=== PATIENT | male | born 1955 | race African-American/Black ===

== ENCOUNTER 2019-07-16 22:40 | Inpatient (IN) | payer OTHER ==
[~2019-07-16] VITALS: Ht 182.9 cm; Wt 54.0 kg
[2019-07-16] MEDS ORDERED: LORAZEPAM 2MG/ML CPJ IV ONE (23:00)
[2019-07-16 23:40] LABS: CHLORIDE 97 mEq/L (98-107)
[2019-07-16 23:46] LABS: BASOPHILS % 1.3 % (0.0-2.0); EOSINOPHILS % 2.3 % (0.0-5.0); HEMATOCRIT. 28.1 % (42.0-52.0); HEMOGLOBIN. 8.9 g/dL (14.0-18.0); LYMPHOCYTES % 35.1 % (20.0-50.0); MEAN CORPUSCULAR HEMOGLOBIN 28.2 pg (28.0-32.0); MEAN CORPUSCULAR VOLUME 89.5 fL (80.0-94.0); MONOCYTES % 4.6 % (2.0-8.0); NEUTROPHILS % 56.7 % (40.0-76.0); PLATELET 368 x1000/uL (130-400); RED BLOOD CELL COUNT 3.14 mill/uL (4.7-6.1); RED CELL DISTRIBUTION WIDTH 19.9 % (11.6-14.6)
[2019-07-16 23:51] LABS: CREATINE KINASE 176 IU/L (39-308)
[2019-07-16 23:52] LABS: D-DIMER 2.42 mg/L FEU (<0.50); PARTIAL THROMBOPLASTIN TIME 27.5 sec (23.4-31.0); PROTHROMBIN TIME 10.7 sec (9.6-11.0)
[2019-07-17] VITALS (36 sets, daily range): BP systolic 52–222; BP diastolic 35–133
[2019-07-17] MEDS ORDERED: ALBUTEROL (0.083%) 2.5MG/3ML NEB HHN ONE (00:30)
[2019-07-17] MEDS ORDERED: LORAZEPAM 2MG/ML CPJ IV ONE (00:30)
[2019-07-17] MEDS ORDERED: CALCIUM CHLORIDE 1GM/10ML SYR IV ONE ×2 (00:30→09:30)
[2019-07-17] MEDS ORDERED: DEXTROSE 50% WATER 50ML SYRINGE IV ONE ×2 (00:30→09:30)
[2019-07-17] MEDS ORDERED: SODIUM BICARBONATE 8.4% 1 MEQ/ML 50ML SYR IV ONE ×2 (00:30→09:30)
[2019-07-17] MEDS ORDERED: INSULIN REGULAR (HUMULIN R) 300UNITS/3ML IV ONE ×2 (00:30→09:30)
[2019-07-17] MEDS ORDERED: HYDRALAZINE 20MG/ML VIAL IV ONE ×2 (01:30→16:30)
[2019-07-17] MEDS ORDERED: PIPERACILLIN/TAZOBACTAM 3.375GM/50ML PREMIX IV ONE (01:30)
[2019-07-17] MEDS ORDERED: VANCOMYCIN 1 G PREMIX 200 ML IV ONE (01:30)
[2019-07-17] MEDS ORDERED: LABETALOL HCL 20MG/4ML CARPUJECT IV ONE (04:45)
[2019-07-17] MEDS ORDERED: CEFTRIAXONE 1 G PREMIX 50 ML IV SCH (06:30)
[2019-07-17] MEDS ORDERED: ENOXAPARIN 40MG/0.4ML SYR SUBCUT SCH (06:30)
[2019-07-17] MEDS ORDERED: AZITHROMYCIN 500 MG in DEXT 5% WATER 250 ML IV SCH ×2 (06:30→14:45)
[2019-07-17] MEDS ORDERED: AZITHROMYCIN 500 MG in DEXT 5% WATER 250 ML IV ONE (07:00)
[2019-07-17] MEDS ORDERED: CEFTRIAXONE 1 G PREMIX 50 ML IV ONE (07:00)
[2019-07-17] MEDS: DEXT 5%/0.45% NACL 1000ML 1,000 ML IV SCH (07:21)
[2019-07-17 09:22] LABS: BG BILEVEL POS AIRWAY PRESSURE ST=15/5; BG CARBOXYHEMOGLOBIN 0.1 % (0.5-1.5); BG DEOXYHEMOGLOBIN 4.6 % (0.0-5.0); BG FRACTION INSPIRED OXYGEN 100; BG HCO3 ACT 23.1 mmol/L (22.0-26.0); BG METHEMOGLOBIN 0.2 % (0.0-1.5); BG OXYGEN SATURATION 95.4 % (92.0-98.5); BG OXYHEMOGLOBIN 95.1 % (94.0-97.0); BG PCO2 46.2 mmHg (35.0-45.0); BG PH 7.316 (7.350-7.450); BG PO2 91.2 mmHg (75.0-100.0); BG SAMPLE SITE RIGHT RADIAL; BG TOTAL HEMOGLOBIN 8.8 g/dL (12.0-18.0); BG VENT MODE MASK - BIPAP
[2019-07-17] MEDS ORDERED: PROPOFOL 10MG/ML 100ML 100 ML IV ONE (09:30)
[2019-07-17] MEDS ORDERED: VECURONIUM BROMIDE 10 MG/VIAL IV ONE (09:30)
[2019-07-17 09:36] LABS: BASOPHILS % 1.2 % (0.0-2.0); EOSINOPHILS % 0.1 % (0.0-5.0); HEMATOCRIT. 26.8 % (42.0-52.0); HEMOGLOBIN. 8.5 g/dL (14.0-18.0); LYMPHOCYTES % 10.2 % (20.0-50.0); MEAN CORPUSCULAR HEMOGLOBIN 28.3 pg (28.0-32.0); MEAN CORPUSCULAR VOLUME 88.8 fL (80.0-94.0); MEAN PLATELET VOLUME 9.4 fl (7.4-10.4); MONOCYTES % 5.9 % (2.0-8.0); NEUTROPHILS % 82.6 % (40.0-76.0); PLATELET 288 x1000/uL (130-400); RED BLOOD CELL COUNT 3.02 mill/uL (4.7-6.1); RED CELL DISTRIBUTION WIDTH 19.5 % (11.6-14.6)
[2019-07-17 09:45] LABS: CHLORIDE 97 mEq/L (98-107)
[2019-07-17 10:13] LABS: BG CARBOXYHEMOGLOBIN 0.1 % (0.5-1.5); BG DEOXYHEMOGLOBIN 8.7 % (0.0-5.0); BG FRACTION INSPIRED OXYGEN 100; BG HCO3 ACT 24.3 mmol/L (22.0-26.0); BG METHEMOGLOBIN 0.2 % (0.0-1.5); BG OXYGEN SATURATION 91.3 % (92.0-98.5); BG PCO2 58.1 mmHg (35.0-45.0); BG PH 7.239 (7.350-7.450); BG SAMPLE SITE RIGHT RADIAL; BG TIDAL VOLUME(mL) 500 mL; BG TOTAL HEMOGLOBIN 6.6 g/dL (12.0-18.0); BG VENT MODE VENT - A/C; BG VENT RATE 20 set
[2019-07-17] MEDS ORDERED: CEFEPIME 1,000 MG in DEXTROSE 5% WATER 50 ML IV SCH (14:45)
[2019-07-17] MEDS: AMLODIPINE 10MG TABLET PO SCH (15:15)
[2019-07-17] MEDS: PANTOPRAZOLE SODIUM 40 MG/VIAL IV SCH (16:54)
[2019-07-17] MEDS: PROPOFOL 10MG/ML 100ML 100 ML IV PRN (16:56)
[2019-07-17] MEDS: CEFEPIME 1,000 MG in DEXTROSE 5% WATER 50 ML IV SCH (18:55)
[2019-07-17] MEDS: ENOXAPARIN 30MG/0.3ML SYR SUBCUT SCH (22:06)
[2019-07-18] VITALS (94 sets, daily range): BP systolic 130–201; BP diastolic 83–133
[2019-07-18] MEDS: PROPOFOL 10MG/ML 100ML 100 ML IV PRN ×5 (01:13→20:43)
[2019-07-18 06:33] LABS: CHLORIDE 103 mEq/L (98-107)
[2019-07-18 06:55] LABS: HEMATOCRIT. 23.3 % (42.0-52.0); HEMOGLOBIN. 7.8 g/dL (14.0-18.0); MEAN CORPUSCULAR HEMOGLOBIN 29.1 pg (28.0-32.0); MEAN CORPUSCULAR VOLUME 86.9 fL (80.0-94.0); PLATELET 218 x1000/uL (130-400); RED BLOOD CELL COUNT 2.68 mill/uL (4.7-6.1); RED CELL DISTRIBUTION WIDTH 19.1 % (11.6-14.6)
[2019-07-18] MEDS: DEXT 5%/0.45% NACL 1000ML 1,000 ML IV SCH (07:40)
[2019-07-18 08:31] LABS: BG BASE EXCESS 2.7 mmol/L (-2.0-2.0); BG CARBOXYHEMOGLOBIN 0.3 % (0.5-1.5); BG DEOXYHEMOGLOBIN 0.8 % (0.0-5.0); BG HCO3 ACT 27.4 mmol/L (22.0-26.0); BG METHEMOGLOBIN 0.3 % (0.0-1.5); BG OXYGEN SATURATION 99.2 % (92.0-98.5); BG OXYHEMOGLOBIN 98.6 % (94.0-97.0); BG PCO2 42.9 mmHg (35.0-45.0); BG PH 7.423 (7.350-7.450); BG PO2 169.1 mmHg (75.0-100.0); BG SAMPLE SITE RIGHT RADIAL; BG TIDAL VOLUME(mL) 500 mL; BG TOTAL HEMOGLOBIN 9.1 g/dL (12.0-18.0); BG VENT MODE VENT - A/C; BG VENT RATE 20 set
[2019-07-18] MEDS: CLONIDINE 0.1MG TABLET PO PRN (08:46)
[2019-07-18] MEDS: AZITHROMYCIN 500 MG in DEXT 5% WATER 250 ML IV SCH (08:46)
[2019-07-18] MEDS: PANTOPRAZOLE SODIUM 40 MG/VIAL IV SCH (08:46)
[2019-07-18] MEDS: AMLODIPINE 10MG TABLET PO SCH (08:47)
[2019-07-18 10:12] LABS: PLATELET ESTIMATE NORMAL
[2019-07-18] MEDS ORDERED: IPRATROPIUM/ALBUTEROL 0.5-3(2.5)MG/3ML NEB HHN PRN (12:30)
[2019-07-18] MEDS: HYDRALAZINE 20MG/ML VIAL IV PRN ×2 (13:47→23:16)
[2019-07-18] MEDS: CEFEPIME 1,000 MG in DEXTROSE 5% WATER 50 ML IV SCH (17:52)
[2019-07-18] MEDS: ENOXAPARIN 30MG/0.3ML SYR SUBCUT SCH (20:40)
[2019-07-18] MEDS: IPRATROPIUM/ALBUTEROL 0.5-3(2.5)MG/3ML NEB HHN SCH (20:56)
[2019-07-18] MEDS ORDERED: DEXT 5%/0.45% NACL 1000ML 1,000 ML IV SCH (22:00)
[2019-07-19] VITALS (38 sets, daily range): BP systolic 100–171; BP diastolic 61–109
[2019-07-19] MEDS: PROPOFOL 10MG/ML 100ML 100 ML IV PRN ×4 (01:31→20:29)
[2019-07-19] MEDS: IPRATROPIUM/ALBUTEROL 0.5-3(2.5)MG/3ML NEB HHN SCH ×4 (02:13→20:46)
[2019-07-19 06:54] LABS: HEPATITIS B SURFACE ANTIGEN NEGATIVE
[2019-07-19] MEDS: HYDRALAZINE 20MG/ML VIAL IV PRN (07:00)
[2019-07-19] MEDS: PANTOPRAZOLE SODIUM 40 MG/VIAL IV SCH (08:11)
[2019-07-19] MEDS: AMLODIPINE 10MG TABLET PO SCH (08:11)
[2019-07-19 09:11] LABS: BASOPHILS % 1.6 % (0.0-2.0); EOSINOPHILS % 0.8 % (0.0-5.0); HEMATOCRIT. 21.1 % (42.0-52.0); LYMPHOCYTES % 11.9 % (20.0-50.0); MEAN CORPUSCULAR VOLUME 87.2 fL (80.0-94.0); MEAN PLATELET VOLUME 8.9 fl (7.4-10.4); MONOCYTES % 10.9 % (2.0-8.0); NEUTROPHILS % 74.8 % (40.0-76.0); PLATELET 192 x1000/uL (130-400); RED BLOOD CELL COUNT 2.42 mill/uL (4.7-6.1); RED CELL DISTRIBUTION WIDTH 19.6 % (11.6-14.6)
[2019-07-19 10:01] LABS: BG BASE EXCESS 1.1 mmol/L (-2.0-2.0); BG CARBOXYHEMOGLOBIN 0.3 % (0.5-1.5); BG DEOXYHEMOGLOBIN 0.8 % (0.0-5.0); BG FRACTION INSPIRED OXYGEN 60; BG METHEMOGLOBIN 0.1 % (0.0-1.5); BG OXYGEN SATURATION 99.2 % (92.0-98.5); BG OXYHEMOGLOBIN 98.8 % (94.0-97.0); BG PCO2 36.3 mmHg (35.0-45.0); BG PH 7.456 (7.350-7.450); BG PO2 174.3 mmHg (75.0-100.0); BG SAMPLE SITE RIGHT RADIAL; BG TIDAL VOLUME(mL) 500 mL; BG TOTAL HEMOGLOBIN 6.6 g/dL (12.0-18.0); BG VENT MODE VENT - A/C; BG VENT RATE 16 set
[2019-07-19] MEDS ORDERED: FENTANYL CITRATE/PF 500 MCG in SODIUM CHLORIDE 0.9% 40 ML IV PRN (11:30)
[2019-07-19] MEDS: AZITHROMYCIN 500 MG in DEXT 5% WATER 250 ML IV SCH (14:36)
[2019-07-19] MEDS: CEFEPIME 1,000 MG in DEXTROSE 5% WATER 50 ML IV SCH (17:36)
[2019-07-19] MEDS: ENOXAPARIN 30MG/0.3ML SYR SUBCUT SCH (20:05)
[2019-07-20] VITALS (76 sets, daily range): BP systolic 102–162; BP diastolic 65–107
[2019-07-20] MEDS: IPRATROPIUM/ALBUTEROL 0.5-3(2.5)MG/3ML NEB HHN SCH ×4 (02:40→20:48)
[2019-07-20] MEDS: PROPOFOL 10MG/ML 100ML 100 ML IV PRN ×4 (02:53→19:23)
[2019-07-20 06:53] LABS: BASOPHILS % 1.5 % (0.0-2.0); EOSINOPHILS % 2.9 % (0.0-5.0); LYMPHOCYTES % 13.2 % (20.0-50.0); MEAN CORPUSCULAR HEMOGLOBIN 28.6 pg (28.0-32.0); MEAN CORPUSCULAR VOLUME 87.8 fL (80.0-94.0); MEAN PLATELET VOLUME 9.5 fl (7.4-10.4); MONOCYTES % 7.8 % (2.0-8.0); NEUTROPHILS % 74.6 % (40.0-76.0); PLATELET 181 x1000/uL (130-400); RED BLOOD CELL COUNT 1.84 mill/uL (4.7-6.1); RED CELL DISTRIBUTION WIDTH 19.3 % (11.6-14.6)
[2019-07-20 07:00] LABS: HEMATOCRIT. 16.2 % (42.0-52.0); HEMOGLOBIN. 5.3 g/dL (14.0-18.0)
[2019-07-20] MEDS: PANTOPRAZOLE SODIUM 40 MG/VIAL IV SCH (08:16)
[2019-07-20] MEDS: AZITHROMYCIN 500 MG in DEXT 5% WATER 250 ML IV SCH (08:17)
[2019-07-20] MEDS: AMLODIPINE 10MG TABLET PO SCH (08:17)
[2019-07-20] MEDS: CLONIDINE 0.1MG TABLET PO PRN (08:55)
[2019-07-20 09:47] LABS: BG BASE EXCESS 6.1 mmol/L (-2.0-2.0); BG CARBOXYHEMOGLOBIN 0.5 % (0.5-1.5); BG DEOXYHEMOGLOBIN 1.4 % (0.0-5.0); BG FRACTION INSPIRED OXYGEN 40; BG HCO3 ACT 30.9 mmol/L (22.0-26.0); BG METHEMOGLOBIN 0.3 % (0.0-1.5); BG OXYGEN SATURATION 98.6 % (92.0-98.5); BG OXYHEMOGLOBIN 97.8 % (94.0-97.0); BG PCO2 47.1 mmHg (35.0-45.0); BG PH 7.435 (7.350-7.450); BG PO2 128.1 mmHg (75.0-100.0); BG SAMPLE SITE RIGHT RADIAL; BG TIDAL VOLUME(mL) 500 mL; BG TOTAL HEMOGLOBIN 6.5 g/dL (12.0-18.0); BG VENT MODE VENT - A/C; BG VENT RATE 16 set
[2019-07-20] MEDS: FENTANYL CITRATE/PF 1,000 MCG in SODIUM CHLORIDE 0.9% 80 ML IV PRN ×2 (13:29→22:18)
[2019-07-20] MEDS: CEFEPIME 1,000 MG in DEXTROSE 5% WATER 50 ML IV SCH (17:28)
[2019-07-21] VITALS (85 sets, daily range): BP systolic 142–219; BP diastolic 76–157
[2019-07-21] MEDS: PROPOFOL 10MG/ML 100ML 100 ML IV PRN ×2 (01:02→05:39)
[2019-07-21] MEDS: IPRATROPIUM/ALBUTEROL 0.5-3(2.5)MG/3ML NEB HHN SCH ×4 (02:11→20:25)
[2019-07-21] MEDS: HYDRALAZINE 20MG/ML VIAL IV PRN ×3 (05:37→19:52)
[2019-07-21] MEDS: CLONIDINE 0.1MG TABLET PO PRN ×3 (07:50→22:22)
[2019-07-21] MEDS ORDERED: AZITHROMYCIN 500 MG TABLET PO SCH (09:00)
[2019-07-21] MEDS: PANTOPRAZOLE SODIUM 40 MG/VIAL IV SCH (09:22)
[2019-07-21] MEDS: AMLODIPINE 10MG TABLET PO SCH (09:23)
[2019-07-21] MEDS: FENTANYL CITRATE/PF 1,000 MCG in SODIUM CHLORIDE 0.9% 80 ML IV PRN (09:59)
[2019-07-21 10:59] LABS: HEMATOCRIT. 29.6 % (42.0-52.0); MEAN CORPUSCULAR HEMOGLOBIN 29.2 pg (28.0-32.0); MEAN PLATELET VOLUME 9.2 fl (7.4-10.4); RED CELL DISTRIBUTION WIDTH 17.2 % (11.6-14.6)
[2019-07-21 12:45] LABS: PLATELET ESTIMATE NORMAL
[2019-07-21 12:46] LABS: PLATELET 239 x1000/uL (130-400)
[2019-07-21 13:00] LABS: BG BASE EXCESS 0.3 mmol/L (-2.0-2.0); BG CARBOXYHEMOGLOBIN 0.3 % (0.5-1.5); BG CPAP (cmH2O) 0 cm(H2O); BG DEOXYHEMOGLOBIN 4.2 % (0.0-5.0); BG HCO3 ACT 25.6 mmol/L (22.0-26.0); BG METHEMOGLOBIN 0.1 % (0.0-1.5); BG OXYGEN SATURATION 95.8 % (92.0-98.5); BG OXYHEMOGLOBIN 95.4 % (94.0-97.0); BG PCO2 44.4 mmHg (35.0-45.0); BG PH 7.379 (7.350-7.450); BG PO2 82.8 mmHg (75.0-100.0); BG SAMPLE SITE RIGHT RADIAL; BG TOTAL HEMOGLOBIN 10.2 g/dL (12.0-18.0); BG VENT MODE VENT - CPAP
[2019-07-21] MEDS: CEFEPIME 1,000 MG in DEXTROSE 5% WATER 50 ML IV SCH (18:26)
[2019-07-22] VITALS (12 sets, daily range): BP systolic 166–242; BP diastolic 96–137
[2019-07-22] MEDS: ACETAMINOPHEN 650MG SUPP PR PRN ×2 (00:08→06:20)
[2019-07-22] MEDS: HYDRALAZINE 20MG/ML VIAL IV PRN ×5 (01:23→22:14)
[2019-07-22] MEDS: IPRATROPIUM/ALBUTEROL 0.5-3(2.5)MG/3ML NEB HHN SCH ×4 (02:28→21:30)
[2019-07-22] MEDS: ONDANSETRON HCL 4MG/2ML INJ IV PRN (03:59)
[2019-07-22] MEDS: CLONIDINE 0.1MG TABLET PO PRN (03:59)
[2019-07-22] MEDS: PANTOPRAZOLE SODIUM 40 MG/VIAL IV SCH (08:04)
[2019-07-22] MEDS: AMLODIPINE 10MG TABLET PO SCH (08:04)
[2019-07-22] MEDS ORDERED: ENALAPRIL 1.25MG/ML VIAL 1ML IV NR (10:30)
[2019-07-22] MEDS ORDERED: LABETALOL 5MG/ML SYR 20 MG/4 ML SYRINGE IV NR (12:00)
[2019-07-22] MEDS: HYDRALAZINE HCL 50MG TABLET PO SCH ×2 (14:49→20:55)
[2019-07-22] MEDS: METOPROLOL TARTRATE 25MG TABLET PO SCH (20:55)
[2019-07-23] VITALS (10 sets, daily range): BP systolic 140–194; BP diastolic 90–112
[2019-07-23] MEDS: CLONIDINE 0.1MG TABLET PO PRN ×2 (00:57→06:44)
[2019-07-23] MEDS: ONDANSETRON HCL 4MG/2ML INJ IV PRN ×2 (00:59→20:46)
[2019-07-23] MEDS: IPRATROPIUM/ALBUTEROL 0.5-3(2.5)MG/3ML NEB HHN SCH ×4 (02:55→21:59)
[2019-07-23] MEDS: HYDRALAZINE 20MG/ML VIAL IV PRN ×2 (03:20→09:54)
[2019-07-23] MEDS: HYDRALAZINE HCL 50MG TABLET PO SCH (05:09)
[2019-07-23] MEDS: PANTOPRAZOLE SODIUM 40 MG/VIAL IV SCH (09:55)
[2019-07-23] MEDS: AMLODIPINE 10MG TABLET PO SCH (09:55)
[2019-07-23] MEDS: METOPROLOL TARTRATE 25MG TABLET PO SCH ×2 (09:55→20:46)
[2019-07-23] MEDS: MINOXIDIL 2.5MG TABLET PO SCH (12:43)
[2019-07-23] MEDS ORDERED: CLONIDINE HCL 0.1MG/24HR PATCH TD SCH (13:00)
[2019-07-23] MEDS: DOXAZOSIN MESYLATE 4MG TABLET PO SCH (14:32)
[2019-07-23] MEDS: HYDRALAZINE HCL 100MG TABLET PO SCH ×2 (14:32→20:47)
[2019-07-23] MEDS ORDERED: ZOLPIDEM TARTRATE 5MG TABLET PO PRN (20:30)
[2019-07-24] VITALS (9 sets, daily range): BP systolic 115–162; BP diastolic 60–104
[2019-07-24] MEDS: IPRATROPIUM/ALBUTEROL 0.5-3(2.5)MG/3ML NEB HHN SCH (02:24)
[2019-07-24] MEDS: HYDRALAZINE 20MG/ML VIAL IV PRN (03:36)
[2019-07-24] MEDS: CLONIDINE 0.1MG TABLET PO PRN (05:40)
[2019-07-24 05:51] LABS: BASOPHILS % 1.3 % (0.0-2.0); EOSINOPHILS % 5.7 % (0.0-5.0); HEMATOCRIT. 26.4 % (42.0-52.0); HEMOGLOBIN. 8.9 g/dL (14.0-18.0); LYMPHOCYTES % 13.3 % (20.0-50.0); MEAN CORPUSCULAR HEMOGLOBIN 29.1 pg (28.0-32.0); MEAN CORPUSCULAR VOLUME 86.4 fL (80.0-94.0); MEAN PLATELET VOLUME 8.7 fl (7.4-10.4); MONOCYTES % 9.1 % (2.0-8.0); NEUTROPHILS % 70.6 % (40.0-76.0); PLATELET 229 x1000/uL (130-400); RED BLOOD CELL COUNT 3.05 mill/uL (4.7-6.1); RED CELL DISTRIBUTION WIDTH 17.5 % (11.6-14.6)
[2019-07-24] MEDS: HYDRALAZINE HCL 100MG TABLET PO SCH ×2 (07:34→14:00)
[2019-07-24] MEDS: MINOXIDIL 2.5MG TABLET PO SCH (09:27)
[2019-07-24] MEDS: AMLODIPINE 10MG TABLET PO SCH (09:28)
[2019-07-24] MEDS: METOPROLOL TARTRATE 25MG TABLET PO SCH (09:28)
[2019-07-24] MEDS: PANTOPRAZOLE SODIUM 40 MG/VIAL IV SCH (09:29)
[2019-07-24] MEDS: DOXAZOSIN MESYLATE 4MG TABLET PO SCH (09:29)
[2019-07-24] MEDS ORDERED: HEPARIN SODIUM 1,000 UNIT/1ML VIAL IV NR (14:45)
== END 2019-07-24 16:10 | disposition home or self-care (01) | DRG 130 ==
LOC: ER 22:40 → MICUSO 07-17 00:56 → EDBD 07-17 00:56 → ENRESERV 07-17 15:08 → 5EST 07-18 22:45 → 3WST 07-24 11:24
PROVIDERS: ADMIT Hospitalist; ATTEND Hospitalist
PROC: 5A1955Z Respiratory Ventilation, Greater than 96 Consecutive Hours (ICD-10-PCS; principal; 2019-07-17)
PROC: 5A12012 Performance of Cardiac Output, Single, Manual (ICD-10-PCS; 2019-07-17)
PROC: 0BH17EZ Insertion of Endotracheal Airway into Trachea, Via Natural or Artificial Opening (ICD-10-PCS; 2019-07-17)
PROC: 5A1D70Z Performance of Urinary Filtration, Intermittent, Less than 6 Hours Per Day (ICD-10-PCS; 2019-07-17)
PROC: 5A09357 Assistance with Respiratory Ventilation, Less than 24 Consecutive Hours, Continuous Positive Airway Pressure (ICD-10-PCS; 2019-07-17)
PROC: 5A1D70Z Performance of Urinary Filtration, Intermittent, Less than 6 Hours Per Day (ICD-10-PCS; 2019-07-18)
PROC: 02HV33Z Insertion of Infusion Device into Superior Vena Cava, Percutaneous Approach (ICD-10-PCS; 2019-07-19)
PROC: B548ZZA Ultrasonography of Superior Vena Cava, Guidance (ICD-10-PCS; 2019-07-19)
PROC: B5181ZA Fluoroscopy of Superior Vena Cava using Low Osmolar Contrast, Guidance (ICD-10-PCS; 2019-07-19)
PROC: 30233N1 Transfusion of Nonautologous Red Blood Cells into Peripheral Vein, Percutaneous Approach (ICD-10-PCS; 2019-07-20)
PROC: 5A1D70Z Performance of Urinary Filtration, Intermittent, Less than 6 Hours Per Day (ICD-10-PCS; 2019-07-20)
PROC: 5A1D70Z Performance of Urinary Filtration, Intermittent, Less than 6 Hours Per Day (ICD-10-PCS; 2019-07-22)
PROC: 5A1D70Z Performance of Urinary Filtration, Intermittent, Less than 6 Hours Per Day (ICD-10-PCS; 2019-07-24)
DX: J96.01 Acute respiratory failure with hypoxia (principal); I46.9 Cardiac arrest, cause unspecified; E43 Unspecified severe protein-calorie malnutrition; G92 Toxic encephalopathy; I13.2 Hypertensive heart and chronic kidney disease with heart failure and with stage 5 chronic kidney disease, or end stage renal disease; E87.5 Hyperkalemia; N18.6 End stage renal disease; Z99.2 Dependence on renal dialysis; E87.1 Hypo-osmolality and hyponatremia; D64.9 Anemia, unspecified; Z20.828 Contact with and (suspected) exposure to other viral communicable diseases; F14.10 Cocaine abuse, uncomplicated; I50.9 Heart failure, unspecified; E87.2 Acidosis; B19.20 Unspecified viral hepatitis C without hepatic coma; Z91.14 Patient's other noncompliance with medication regimen; Z68.1 Body mass index [BMI] 19.9 or less, adult; Z79.899 Other long term (current) drug therapy
CPT/HCPCS: 36415; 36600; 71045; 76937; 80048; 80053; 82375; 82550; 82728; 82805; 82962; 83605; 83615; 83880; 84132; 84145; 84478; 84484; 85025; 85379; 86140; 86803; 86850; 86900; 86920; 87070; 87340; 92610; 93005; 94002; 99291; 99292; C1725; C9113; J0360; J0456; J0692; J0696; J1650; J1815; J2060; J2405; J2543; J2704; J3010; J3370; J3490; J7050; J7060; P9016; U0003

== ENCOUNTER 2019-07-31 03:16 | Inpatient (IN) | payer OTHER ==
[~2019-07-31] VITALS: Ht 188 cm; Wt 52.2 kg
[2019-07-31] MEDS ORDERED: LABETALOL 5MG/ML SYR 20 MG/4 ML SYRINGE IV ONE (04:45)
[2019-07-31 05:12] LABS: BASOPHILS % 1.4 % (0.0-2.0); EOSINOPHILS % 5.5 % (0.0-5.0); HEMATOCRIT. 27.8 % (42.0-52.0); HEMOGLOBIN. 9.2 g/dL (14.0-18.0); LYMPHOCYTES % 18.3 % (20.0-50.0); MEAN CORPUSCULAR HEMOGLOBIN 28.9 pg (28.0-32.0); MEAN CORPUSCULAR VOLUME 86.9 fL (80.0-94.0); MONOCYTES % 5.6 % (2.0-8.0); NEUTROPHILS % 69.2 % (40.0-76.0); PLATELET 354 x1000/uL (130-400); RED CELL DISTRIBUTION WIDTH 17.5 % (11.6-14.6)
[2019-07-31 05:19] LABS: CHLORIDE 106 mEq/L (98-107)
[2019-07-31] MEDS ORDERED: NICARDIPINE 100 MG in SODIUM CHLORIDE 0.9% 60 ML IV ONE (05:30)
[2019-07-31] MEDS ORDERED: NICARDIPINE 40MG/200ML PREMIX 200 ML IV ONE (05:38)
[2019-07-31] MEDS ORDERED: NICARDIPINE 40MG/200ML PREMIX 200 ML IV PRN (05:45)
[2019-07-31] MEDS: HYDRALAZINE HCL 100MG TABLET PO SCH (06:00)
[2019-07-31] MEDS: CLONIDINE 0.2MG TABLET PO SCH ×2 (06:00→14:21)
[2019-07-31 08:00] LABS: BG BASE EXCESS 0.8 mmol/L (-2.0-2.0); BG BILEVEL POS AIRWAY PRESSURE 18/5; BG CARBOXYHEMOGLOBIN 0.1 % (0.5-1.5); BG DEOXYHEMOGLOBIN 1.9 % (0.0-5.0); BG FRACTION INSPIRED OXYGEN 60; BG HCO3 ACT 25.4 mmol/L (22.0-26.0); BG METHEMOGLOBIN 0.2 % (0.0-1.5); BG OXYGEN SATURATION 98.1 % (92.0-98.5); BG OXYHEMOGLOBIN 97.8 % (94.0-97.0); BG PCO2 40.5 mmHg (35.0-45.0); BG PH 7.415 (7.350-7.450); BG PO2 126.2 mmHg (75.0-100.0); BG SAMPLE SITE RIGHT BRACHIAL; BG TOTAL HEMOGLOBIN 9.1 g/dL (12.0-18.0); BG VENT MODE MASK - BIPAP; BG VENT RATE 18 set
[2019-07-31] MEDS ORDERED: CLONIDINE 0.1MG TABLET PO PRN (09:15)
[2019-07-31] MEDS ORDERED: ACETAMINOPHEN 325MG TABLET PO PRN (09:15)
[2019-07-31] MEDS ORDERED: ONDANSETRON HCL 4MG/2ML INJ IV PRN (09:15)
[2019-07-31] MEDS ORDERED: FUROSEMIDE 100MG/10ML VIAL IVP SCH (10:00)
[2019-07-31] MEDS ORDERED: SODIUM POLYSTYRENE SULFONATE 15 G/60 ML BOT PO SCH (10:00)
[2019-07-31] MEDS: ENOXAPARIN 30MG/0.3ML SYR SUBCUT SCH (11:00)
[2019-07-31] MEDS ORDERED: HYDRALAZINE HCL 100MG TABLET PO NR (14:45)
[2019-07-31] MEDS: CEFTRIAXONE 1 G PREMIX 50 ML IV SCH (15:05)
[2019-07-31] MEDS: DIPHENHYDRAMINE 25MG CAPSULE PO PRN ×2 (15:05→20:39)
[2019-07-31] MEDS: AZITHROMYCIN 500 MG TABLET PO SCH (15:05)
[2019-07-31] MEDS: LORAZEPAM 2MG/ML CPJ IV SCH (20:00)
[2019-07-31] MEDS ORDERED: SODIUM POLYSTYRENE SULFONATE 15 G/60 ML BOT PO NR (21:45)
[2019-07-31] MEDS ORDERED: INSULIN REGULAR (HUMULIN R) 300UNITS/3ML SUBCUT PRN ×2 (23:45)
[2019-07-31] MEDS ORDERED: DEXTROSE 50% WATER 50ML SYRINGE IV NR (23:45)
[2019-08-01] VITALS (94 sets, daily range): BP systolic 96–196; BP diastolic 56–157
[2019-08-01] MEDS ORDERED: DEXTROSE 50% WATER 50ML SYRINGE IV PRN (01:30)
[2019-08-01] MEDS ORDERED: NIFEDIPINE XL 90MG TAB PO NR (01:30)
[2019-08-01] MEDS: NICARDIPINE 50 MG in SODIUM CHLORIDE 0.9% 230 ML IV PRN ×2 (01:57→09:36)
[2019-08-01] MEDS: LORAZEPAM 2MG/ML CPJ IV SCH ×2 (02:00→06:06)
[2019-08-01] MEDS: HYDRALAZINE HCL 100MG TABLET PO SCH ×3 (06:00→21:36)
[2019-08-01] MEDS: CLONIDINE 0.2MG TABLET PO SCH (06:00)
[2019-08-01 06:34] LABS: BASOPHILS % 2.2 % (0.0-2.0); EOSINOPHILS % 6.9 % (0.0-5.0); HEMATOCRIT. 26.9 % (42.0-52.0); LYMPHOCYTES % 11.6 % (20.0-50.0); MEAN CORPUSCULAR HEMOGLOBIN 28.9 pg (28.0-32.0); MEAN CORPUSCULAR VOLUME 85.9 fL (80.0-94.0); MEAN PLATELET VOLUME 8.7 fl (7.4-10.4); MONOCYTES % 8.6 % (2.0-8.0); NEUTROPHILS % 70.7 % (40.0-76.0); PLATELET 333 x1000/uL (130-400); RED BLOOD CELL COUNT 3.13 mill/uL (4.7-6.1); RED CELL DISTRIBUTION WIDTH 17.7 % (11.6-14.6)
[2019-08-01 06:43] LABS: PHOSPHORUS 3.9 mg/dL (2.5-4.9)
[2019-08-01] MEDS: INSULIN LISPRO 100 UNITS/ML SUBCUT SCH ×4 (07:30→21:00)
[2019-08-01] MEDS: BLOOD SUGAR DIAGNOSTIC STRIP TEST SCH ×4 (07:30→21:37)
[2019-08-01] MEDS: SEVELAMER CARBONATE 800 MG TABLET PO SCH ×3 (08:44→17:38)
[2019-08-01] MEDS: AZITHROMYCIN 500 MG TABLET PO SCH (08:44)
[2019-08-01] MEDS: FOLIC ACID/VITAMIN B COMP W-C TABLET PO SCH (08:44)
[2019-08-01] MEDS: METOPROLOL TARTRATE 50MG TABLET PO SCH ×2 (08:45→21:36)
[2019-08-01] MEDS: PANTOPRAZOLE 40MG DR TABLET PO SCH (08:45)
[2019-08-01] MEDS: ENOXAPARIN 30MG/0.3ML SYR SUBCUT SCH (08:46)
[2019-08-01] MEDS ORDERED: METO-539 PO (11:20)
[2019-08-01] MEDS ORDERED: CLON0.2T12 PO (11:20)
[2019-08-01] MEDS ORDERED: HYDR100T26 PO (11:20)
[2019-08-01] MEDS ORDERED: SEVE800T8 PO (11:20)
[2019-08-01] MEDS ORDERED: CLON0.3T MT (11:21)
[2019-08-01] MEDS ORDERED: LEVO500T2 MT (11:21)
[2019-08-01] MEDS: CLONIDINE 0.1MG TABLET PO NR ×2 (12:26→13:41)
[2019-08-01] MEDS: NIFEDIPINE XL 60MG TAB PO SCH ×2 (13:41→21:51)
[2019-08-01] MEDS: CLONIDINE 0.3MG TABLET PO SCH ×2 (13:47→21:52)
[2019-08-01] MEDS ORDERED: ALBU18HF2 IH (13:54)
[2019-08-01] MEDS ORDERED: LIP40 MT (13:54)
[2019-08-01] MEDS: CEFTRIAXONE 1 G PREMIX 50 ML IV SCH (16:00)
[2019-08-01] MEDS: DIPHENHYDRAMINE 25MG CAPSULE PO PRN (21:35)
[2019-08-01] MEDS: ATORVASTATIN CALCIUM 40MG TABLET PO SCH (21:37)
[2019-08-02] VITALS (60 sets, daily range): BP systolic 97–171; BP diastolic 50–120
[2019-08-02] MEDS: CLONIDINE 0.3MG TABLET PO SCH ×3 (06:20→23:00)
[2019-08-02] MEDS: HYDRALAZINE HCL 100MG TABLET PO SCH ×3 (06:21→23:00)
[2019-08-02 06:54] LABS: BASOPHILS % 2.5 % (0.0-2.0); EOSINOPHILS % 6.9 % (0.0-5.0); HEMATOCRIT. 27.8 % (42.0-52.0); HEMOGLOBIN. 9.1 g/dL (14.0-18.0); LYMPHOCYTES % 27.4 % (20.0-50.0); MEAN CORPUSCULAR HEMOGLOBIN 28.7 pg (28.0-32.0); MEAN CORPUSCULAR VOLUME 87.8 fL (80.0-94.0); MEAN PLATELET VOLUME 9.1 fl (7.4-10.4); MONOCYTES % 9.9 % (2.0-8.0); NEUTROPHILS % 53.3 % (40.0-76.0); PLATELET 297 x1000/uL (130-400); RED BLOOD CELL COUNT 3.17 mill/uL (4.7-6.1); RED CELL DISTRIBUTION WIDTH 17.4 % (11.6-14.6)
[2019-08-02 07:04] LABS: PHOSPHORUS 4.7 mg/dL (2.5-4.9)
[2019-08-02] MEDS: INSULIN LISPRO 100 UNITS/ML SUBCUT SCH ×4 (07:30→20:54)
[2019-08-02] MEDS: BLOOD SUGAR DIAGNOSTIC STRIP TEST SCH ×4 (07:30→20:54)
[2019-08-02] MEDS: AZITHROMYCIN 500 MG TABLET PO SCH (09:40)
[2019-08-02] MEDS: FOLIC ACID/VITAMIN B COMP W-C TABLET PO SCH (09:40)
[2019-08-02] MEDS: SEVELAMER CARBONATE 800 MG TABLET PO SCH ×3 (09:40→18:29)
[2019-08-02] MEDS: METOPROLOL TARTRATE 50MG TABLET PO SCH ×2 (09:46→20:54)
[2019-08-02] MEDS: PANTOPRAZOLE 40MG DR TABLET PO SCH (09:46)
[2019-08-02] MEDS: ENOXAPARIN 30MG/0.3ML SYR SUBCUT SCH (09:48)
[2019-08-02] MEDS: DIPHENHYDRAMINE 25MG CAPSULE PO PRN (10:28)
[2019-08-02] MEDS: CEFTRIAXONE 1 G PREMIX 50 ML IV SCH (17:24)
[2019-08-02] MEDS: LORAZEPAM 2MG/ML CPJ IV PRN (18:33)
[2019-08-02] MEDS: ATORVASTATIN CALCIUM 40MG TABLET PO SCH (20:54)
[2019-08-03] VITALS: BP 163/97
[2019-08-03] MEDS: LORAZEPAM 2MG/ML CPJ IV PRN (01:05)
[2019-08-03 04:48] VITALS: BP 166/93
[2019-08-03] MEDS: CLONIDINE 0.3MG TABLET PO SCH (06:17)
[2019-08-03] MEDS: HYDRALAZINE HCL 100MG TABLET PO SCH (06:17)
[2019-08-03] MEDS: INSULIN LISPRO 100 UNITS/ML SUBCUT SCH ×2 (06:44→12:20)
[2019-08-03] MEDS: BLOOD SUGAR DIAGNOSTIC STRIP TEST SCH ×2 (06:44→13:10)
[2019-08-03 07:37] LABS: BASOPHILS % 1.9 % (0.0-2.0); EOSINOPHILS % 8.2 % (0.0-5.0); HEMATOCRIT. 26.2 % (42.0-52.0); HEMOGLOBIN. 8.7 g/dL (14.0-18.0); LYMPHOCYTES % 23.9 % (20.0-50.0); MEAN CORPUSCULAR HEMOGLOBIN 29.1 pg (28.0-32.0); MEAN CORPUSCULAR VOLUME 87.9 fL (80.0-94.0); MEAN PLATELET VOLUME 8.9 fl (7.4-10.4); MONOCYTES % 9.4 % (2.0-8.0); NEUTROPHILS % 56.6 % (40.0-76.0); PLATELET 227 x1000/uL (130-400); RED BLOOD CELL COUNT 2.98 mill/uL (4.7-6.1); RED CELL DISTRIBUTION WIDTH 17.2 % (11.6-14.6)
[2019-08-03 08:00] VITALS: BP 169/80
[2019-08-03] MEDS: ENOXAPARIN 30MG/0.3ML SYR SUBCUT SCH (08:46)
[2019-08-03] MEDS: SEVELAMER CARBONATE 800 MG TABLET PO SCH ×2 (08:46→13:13)
[2019-08-03] MEDS: METOPROLOL TARTRATE 50MG TABLET PO SCH (08:48)
[2019-08-03] MEDS: AZITHROMYCIN 500 MG TABLET PO SCH (08:49)
[2019-08-03] MEDS: FOLIC ACID/VITAMIN B COMP W-C TABLET PO SCH (08:49)
[2019-08-03] MEDS ORDERED: FAMOTIDINE 20MG TABLET PO SCH (09:00)
[2019-08-03 09:22] LABS: PHOSPHORUS 4.9 mg/dL (2.5-4.9)
[2019-08-03 12:00] VITALS: BP 168/77
[2019-08-03] MEDS ORDERED: NIFEDIPINE XL 60MG TAB PO NR (12:15)
[2019-08-03 12:32] VITALS: BP 168/77
[2019-08-04] MEDS ORDERED: NIFEDIPINE XL 60MG TAB PO SCH (09:00)
== END 2019-08-03 13:40 | disposition home or self-care (01) | DRG 816 ==
LOC: ER 03:16 → MICUSO 05:22 → 5EST 08-01 00:45 → 6WST 08-02 18:15
PROVIDERS: ADMIT Internal Medicine; ATTEND Internal Medicine
PROC: 5A09357 Assistance with Respiratory Ventilation, Less than 24 Consecutive Hours, Continuous Positive Airway Pressure (ICD-10-PCS; principal; 2019-07-31)
PROC: 5A1D70Z Performance of Urinary Filtration, Intermittent, Less than 6 Hours Per Day (ICD-10-PCS; 2019-08-01)
DX: T40.5X1A Poisoning by cocaine, accidental (unintentional), initial encounter (principal); J96.01 Acute respiratory failure with hypoxia; E43 Unspecified severe protein-calorie malnutrition; E11.22 Type 2 diabetes mellitus with diabetic chronic kidney disease; I12.0 Hypertensive chronic kidney disease with stage 5 chronic kidney disease or end stage renal disease; J84.9 Interstitial pulmonary disease, unspecified; J68.0 Bronchitis and pneumonitis due to chemicals, gases, fumes and vapors; I16.0 Hypertensive urgency; N18.6 End stage renal disease; E87.5 Hyperkalemia; E87.79 Other fluid overload; F14.129 Cocaine abuse with intoxication, unspecified; F13.10 Sedative, hypnotic or anxiolytic abuse, uncomplicated; D63.8 Anemia in other chronic diseases classified elsewhere; F17.210 Nicotine dependence, cigarettes, uncomplicated; Z59.0 Homelessness; Z86.74 Personal history of sudden cardiac arrest; Z71.51 Drug abuse counseling and surveillance of drug abuser; Z91.19 Patient's noncompliance with other medical treatment and regimen; Z99.2 Dependence on renal dialysis; Z82.49 Family history of ischemic heart disease and other diseases of the circulatory system; Z68.1 Body mass index [BMI] 19.9 or less, adult; Z79.899 Other long term (current) drug therapy; Z79.4 Long term (current) use of insulin
CPT/HCPCS: 36415; 36600; 71045; 80048; 80053; 80061; 82375; 82805; 82962; 83036; 83735; 83880; 84100; 84132; 84145; 84484; 85025; 86850; 86900; 93005; 94660; 99291; J0696; J1650; J1815; J1940; J2060; J3490; J7050; Q0163

== ENCOUNTER 2019-08-11 18:16 | Inpatient (IN) | payer OTHER ==
[~2019-08-11] VITALS: Ht 175.3 cm; Wt 53.1 kg
[~2019-08-11 18:16] MED LIST: ALBU18HF2 IH; CLON0.3T MT; HYDR100T26 PO; LEVO500T2 MT; LIP40 MT; METO-539 PO; SEVE800T8 PO
[2019-08-11] MEDS ORDERED: NITROGLYCERIN 0.1MG/HR PATCH TOP ONE (19:00)
[2019-08-11 19:28] LABS: CHLORIDE 101 mEq/L (98-107)
[2019-08-11 19:29] LABS: BASOPHILS % 1.4 % (0.0-2.0); EOSINOPHILS % 6.8 % (0.0-5.0); HEMATOCRIT. 25.7 % (42.0-52.0); HEMOGLOBIN. 8.4 g/dL (14.0-18.0); LYMPHOCYTES % 29.8 % (20.0-50.0); MEAN PLATELET VOLUME 8.8 fl (7.4-10.4); MONOCYTES % 11.3 % (2.0-8.0); NEUTROPHILS % 50.7 % (40.0-76.0); PLATELET 234 x1000/uL (130-400); RED BLOOD CELL COUNT 2.92 mill/uL (4.7-6.1); RED CELL DISTRIBUTION WIDTH 17.5 % (11.6-14.6)
[2019-08-11 19:47] LABS: BG BILEVEL POS AIRWAY PRESSURE S/T: 15/5; BG CARBOXYHEMOGLOBIN 0.2 % (0.5-1.5); BG DEOXYHEMOGLOBIN 0.2 % (0.0-5.0); BG FRACTION INSPIRED OXYGEN 100; BG HCO3 ACT 31.3 mmol/L (22.0-26.0); BG METHEMOGLOBIN 0.5 % (0.0-1.5); BG OXYGEN SATURATION 99.8 % (92.0-98.5); BG OXYHEMOGLOBIN 99.1 % (94.0-97.0); BG PCO2 56.2 mmHg (35.0-45.0); BG PH 7.363 (7.350-7.450); BG PO2 434.6 mmHg (75.0-100.0); BG SAMPLE SITE RIGHT RADIAL; BG TOTAL HEMOGLOBIN 8.6 g/dL (12.0-18.0); BG VENT MODE MASK - BIPAP; BG VENT RATE 18 set
[2019-08-11] MEDS ORDERED: HALOPERIDOL LACTATE 5MG/ML VIAL IM ONE (22:45)
[2019-08-12] VITALS (10 sets, daily range): BP systolic 135–190; BP diastolic 82–113
[2019-08-12] MEDS ORDERED: INSULIN REGULAR (HUMULIN R) 300UNITS/3ML IV SCH
[2019-08-12] MEDS ORDERED: SODIUM BICARBONATE 8.4% 1 MEQ/ML 50ML SYR IV SCH
[2019-08-12] MEDS ORDERED: DEXTROSE 50% WATER 50ML SYRINGE IV SCH (00:15)
[2019-08-12] MEDS ORDERED: DEXTROSE 50% WATER 50ML SYRINGE IV ONE ×4 (00:30→03:15)
[2019-08-12] MEDS ORDERED: HYDRALAZINE 20MG/ML VIAL ONE (00:51)
[2019-08-12] MEDS: HYDRALAZINE 20MG/ML VIAL IV SCH ×4 (01:29→20:04)
[2019-08-12] MEDS ORDERED: DEXTROSE 50% WATER 50ML SYRINGE IV PRN ×3 (04:15→07:30)
[2019-08-12] MEDS ORDERED: HYDRALAZINE 20MG/ML VIAL IV SCH (04:15)
[2019-08-12] MEDS ORDERED: HYDRALAZINE 20MG/ML VIAL IV PRN (05:30)
[2019-08-12] MEDS ORDERED: DEXT 10% WATER 1,000 ML IV SCH (05:30)
[2019-08-12] MEDS: DEXT 10% WATER 1,000 ML IV SCH (06:15)
[2019-08-12] MEDS ORDERED: VANCOMYCIN 1 G PREMIX 200 ML IV SCH (07:00)
[2019-08-12] MEDS: BLOOD SUGAR DIAGNOSTIC STRIP TEST SCH ×4 (07:46→21:48)
[2019-08-12] MEDS: PANTOPRAZOLE SODIUM 40 MG/VIAL IV SCH (08:15)
[2019-08-12] MEDS: ENALAPRIL 2.5MG/2ML VIAL 2ML IV SCH ×3 (08:23→21:58)
[2019-08-12] MEDS ORDERED: AMLODIPINE 10MG TABLET PO SCH (09:00)
[2019-08-12 11:46] LABS: BASOPHILS % 1.1 % (0.0-2.0); HEMATOCRIT. 27.5 % (42.0-52.0); HEMOGLOBIN. 8.8 g/dL (14.0-18.0); LYMPHOCYTES % 19.6 % (20.0-50.0); MEAN CORPUSCULAR HEMOGLOBIN 28.1 pg (28.0-32.0); MEAN CORPUSCULAR VOLUME 88.3 fL (80.0-94.0); MEAN PLATELET VOLUME 9.2 fl (7.4-10.4); NEUTROPHILS % 68.3 % (40.0-76.0); PLATELET 230 x1000/uL (130-400); RED BLOOD CELL COUNT 3.12 mill/uL (4.7-6.1)
[2019-08-12] MEDS ORDERED: IPRATROPIUM/ALBUTEROL 0.5-3(2.5)MG/3ML NEB HHN PRN (13:30)
[2019-08-12] MEDS ORDERED: CLONIDINE 0.1MG TABLET PO PRN (13:30)
[2019-08-12 13:39] LABS: PHOSPHORUS 5.3 mg/dL (2.5-4.9)
[2019-08-12] MEDS: ENOXAPARIN 30MG/0.3ML SYR SUBCUT SCH (14:57)
[2019-08-12] MEDS: DIPHENHYDRAMINE 50MG/ML VIAL IM PRN ×2 (17:03→22:59)
[2019-08-12] MEDS: NICOTINE 14MG PATCH TD SCH (17:03)
[2019-08-12] MEDS ORDERED: HALOPERIDOL LACTATE 5MG/ML VIAL IM PRN (19:00)
[2019-08-12] MEDS: NIFEDIPINE XL 60MG TAB PO SCH (21:57)
[2019-08-13] VITALS (12 sets, daily range): BP systolic 147–184; BP diastolic 73–112
[2019-08-13] MEDS: HYDRALAZINE 20MG/ML VIAL IV SCH ×2 (00:28→05:55)
[2019-08-13] MEDS: DEXT 10% WATER 1,000 ML IV SCH (01:28)
[2019-08-13] MEDS: ENALAPRIL 2.5MG/2ML VIAL 2ML IV SCH ×2 (03:49→08:49)
[2019-08-13] MEDS: BLOOD SUGAR DIAGNOSTIC STRIP TEST SCH ×2 (05:52→11:11)
[2019-08-13] MEDS: DIPHENHYDRAMINE 50MG/ML VIAL IM PRN (06:02)
[2019-08-13 07:06] LABS: BASOPHILS % 1.2 % (0.0-2.0); HEMATOCRIT. 22.9 % (42.0-52.0); HEMOGLOBIN. 7.7 g/dL (14.0-18.0); LYMPHOCYTES % 17.4 % (20.0-50.0); MEAN CORPUSCULAR HEMOGLOBIN 29.3 pg (28.0-32.0); MEAN CORPUSCULAR VOLUME 87.3 fL (80.0-94.0); MEAN PLATELET VOLUME 8.3 fl (7.4-10.4); MONOCYTES % 12.9 % (2.0-8.0); NEUTROPHILS % 59.5 % (40.0-76.0); PLATELET 187 x1000/uL (130-400); RED BLOOD CELL COUNT 2.62 mill/uL (4.7-6.1)
[2019-08-13] MEDS: ENOXAPARIN 30MG/0.3ML SYR SUBCUT SCH (08:49)
[2019-08-13] MEDS: PANTOPRAZOLE SODIUM 40 MG/VIAL IV SCH (08:49)
[2019-08-13] MEDS: NICOTINE 14MG PATCH TD SCH (08:49)
[2019-08-13] MEDS: NIFEDIPINE XL 60MG TAB PO SCH (08:50)
[2019-08-13] MEDS ORDERED: FOLIC ACID/VITAMIN B COMP W-C TABLET PO SCH (09:00)
[2019-08-13] MEDS ORDERED: HYDRALAZINE HCL 100MG TABLET PO NR (10:30)
[2019-08-13] MEDS ORDERED: DIPHENHYDRAMINE 50MG/ML VIAL IV PRN (11:00)
[2019-08-13] MEDS ORDERED: CLON0.3T MT (11:54)
[2019-08-13] MEDS ORDERED: HYDR100T26 PO (11:54)
[2019-08-13] MEDS ORDERED: ALBU18HF2 IH (11:54)
[2019-08-13] MEDS ORDERED: LEVO500T2 MT (11:54)
[2019-08-13] MEDS ORDERED: LIP40 MT (11:54)
[2019-08-13] MEDS ORDERED: METO-539 PO (11:54)
[2019-08-13] MEDS ORDERED: SEVE800T8 PO (11:54)
[2019-08-13] MEDS ORDERED: FLUT1DIS3 INH (11:54)
[2019-08-13] MEDS ORDERED: PIPERACILLIN/TAZOBACTAM 3.375 G in DEXT 5% WATER 100 ML IV SCH (12:00)
[2019-08-13] MEDS ORDERED: HYDRALAZINE HCL 100MG TABLET PO SCH (14:00)
[2019-08-13] MEDS ORDERED: CLONIDINE 0.2MG TABLET PO SCH (14:00)
[2019-08-13] MEDS ORDERED: VANCOMYCIN 500 MG PREMIX 100 ML IV NR (15:00)
== END 2019-08-13 14:55 | disposition home or self-care (01) | DRG 133 ==
LOC: ER 18:16 → 3WST 23:57 → ENRESERV 08-12 02:14
PROVIDERS: ADMIT Internal Medicine; ATTEND Internal Medicine
PROC: 5A1D70Z Performance of Urinary Filtration, Intermittent, Less than 6 Hours Per Day (ICD-10-PCS; 2019-08-12)
PROC: 02HV33Z Insertion of Infusion Device into Superior Vena Cava, Percutaneous Approach (ICD-10-PCS; 2019-08-12)
PROC: B548ZZA Ultrasonography of Superior Vena Cava, Guidance (ICD-10-PCS; 2019-08-12)
PROC: 30233N1 Transfusion of Nonautologous Red Blood Cells into Peripheral Vein, Percutaneous Approach (ICD-10-PCS; principal; 2019-08-13)
DX: J96.01 Acute respiratory failure with hypoxia (principal); E43 Unspecified severe protein-calorie malnutrition; J84.9 Interstitial pulmonary disease, unspecified; E11.22 Type 2 diabetes mellitus with diabetic chronic kidney disease; E11.649 Type 2 diabetes mellitus with hypoglycemia without coma; I12.0 Hypertensive chronic kidney disease with stage 5 chronic kidney disease or end stage renal disease; J68.0 Bronchitis and pneumonitis due to chemicals, gases, fumes and vapors; N18.6 End stage renal disease; F14.10 Cocaine abuse, uncomplicated; D63.1 Anemia in chronic kidney disease; E87.5 Hyperkalemia; I16.0 Hypertensive urgency; E87.70 Fluid overload, unspecified; F13.90 Sedative, hypnotic, or anxiolytic use, unspecified, uncomplicated; E11.65 Type 2 diabetes mellitus with hyperglycemia; Z68.1 Body mass index [BMI] 19.9 or less, adult; Z99.2 Dependence on renal dialysis; Z91.15 Patient's noncompliance with renal dialysis; Z91.19 Patient's noncompliance with other medical treatment and regimen; Z79.899 Other long term (current) drug therapy; Z59.0 Homelessness; Z82.49 Family history of ischemic heart disease and other diseases of the circulatory system; Z71.51 Drug abuse counseling and surveillance of drug abuser
CPT/HCPCS: 36415; 36600; 71045; 76937; 80048; 80053; 80061; 80202; 82375; 82805; 82962; 83036; 83880; 84100; 84145; 84484; 85025; 86850; 86900; 86920; 93005; 99291; C1725; C9113; J0360; J1200; J1630; J1650; J1815; J2543; J3370; J3490; J7060; P9016

== ENCOUNTER 2019-08-16 20:19 | Inpatient (IN) | payer OTHER ==
[~2019-08-16] VITALS: Ht 182.9 cm; Wt 53.5 kg
[~2019-08-16 20:19] MED LIST changes: +FLUT1DIS3 INH
[2019-08-16] MEDS ORDERED: NICARDIPINE 40MG/200ML PREMIX 200 ML IV PRN (21:00)
[2019-08-16 21:34] LABS: EOSINOPHILS % 4.9 % (0.0-5.0); HEMATOCRIT. 37.6 % (42.0-52.0); HEMOGLOBIN. 12.3 g/dL (14.0-18.0); LYMPHOCYTES % 32.7 % (20.0-50.0); MEAN CORPUSCULAR HEMOGLOBIN 29.5 pg (28.0-32.0); MEAN CORPUSCULAR VOLUME 90.4 fL (80.0-94.0); MEAN PLATELET VOLUME 7.8 fl (7.4-10.4); MONOCYTES % 5.1 % (2.0-8.0); NEUTROPHILS % 56.3 % (40.0-76.0); PLATELET 290 x1000/uL (130-400); RED BLOOD CELL COUNT 4.16 mill/uL (4.7-6.1); RED CELL DISTRIBUTION WIDTH 17.7 % (11.6-14.6)
[2019-08-16 21:37] LABS: CHLORIDE 106 mEq/L (98-107)
[2019-08-16] MEDS ORDERED: LORAZEPAM 2MG/ML CPJ IV ONE (22:00)
[2019-08-17] VITALS (32 sets, daily range): BP systolic 115–167; BP diastolic 73–117
[2019-08-17] MEDS ORDERED: ACETAMINOPHEN 325MG TABLET PO PRN (08:30)
[2019-08-17] MEDS ORDERED: ONDANSETRON HCL 4MG/2ML INJ IV PRN (08:30)
[2019-08-17] MEDS ORDERED: NICARDIPINE 100 MG in SODIUM CHLORIDE 0.9% 60 ML IV PRN (08:45)
[2019-08-17] MEDS: NIFEDIPINE XL 60MG TAB PO SCH ×2 (09:00→21:38)
[2019-08-17] MEDS ORDERED: SEVELAMER CARBONATE 800 MG TABLET PO NR (09:30)
[2019-08-17] MEDS: ENOXAPARIN 30MG/0.3ML SYR SUBCUT SCH (09:34)
[2019-08-17] MEDS: SEVELAMER CARBONATE 800 MG TABLET PO SCH ×2 (12:00→17:00)
[2019-08-17] MEDS ORDERED: IPRATROPIUM/ALBUTEROL 0.5-3(2.5)MG/3ML NEB HHN PRN (13:00)
[2019-08-17] MEDS: HYDRALAZINE HCL 100MG TABLET PO SCH ×2 (14:12→21:39)
[2019-08-17] MEDS: CLONIDINE 0.2MG TABLET PO SCH ×2 (14:40→21:39)
[2019-08-17] MEDS: HYDROCODONE/ACETAMINOPHEN 10/325MG TABLET PO PRN (17:17)
[2019-08-18] VITALS (34 sets, daily range): BP systolic 42–166; BP diastolic 19–104
[2019-08-18] MEDS: HYDROCODONE/ACETAMINOPHEN 10/325MG TABLET PO PRN (04:40)
[2019-08-18 05:51] LABS: BASOPHILS % 0.9 % (0.0-2.0); EOSINOPHILS % 7.5 % (0.0-5.0); HEMOGLOBIN. 8.6 g/dL (14.0-18.0); LYMPHOCYTES % 21.6 % (20.0-50.0); MEAN CORPUSCULAR HEMOGLOBIN 29.3 pg (28.0-32.0); MEAN CORPUSCULAR VOLUME 88.5 fL (80.0-94.0); MEAN PLATELET VOLUME 8.2 fl (7.4-10.4); MONOCYTES % 9.3 % (2.0-8.0); NEUTROPHILS % 60.7 % (40.0-76.0); PLATELET 196 x1000/uL (130-400); RED BLOOD CELL COUNT 2.93 mill/uL (4.7-6.1); RED CELL DISTRIBUTION WIDTH 17.2 % (11.6-14.6)
[2019-08-18 06:17] LABS: PHOSPHORUS 4.1 mg/dL (2.5-4.9)
[2019-08-18] MEDS: SEVELAMER CARBONATE 800 MG TABLET PO SCH (06:35)
[2019-08-18] MEDS: CLONIDINE 0.2MG TABLET PO SCH (06:36)
[2019-08-18] MEDS: HYDRALAZINE HCL 100MG TABLET PO SCH (06:36)
[2019-08-18] MEDS ORDERED: LIP40 MT (10:21)
[2019-08-18] MEDS ORDERED: METO-539 PO (10:21)
[2019-08-18] MEDS ORDERED: CALC667C MT (10:21)
[2019-08-18] MEDS ORDERED: HYDR100T26 PO (10:21)
[2019-08-18] MEDS ORDERED: CLON0.3T MT (10:21)
[2019-08-18] MEDS: NIFEDIPINE XL 60MG TAB PO SCH (10:25)
[2019-08-18] MEDS: ENOXAPARIN 30MG/0.3ML SYR SUBCUT SCH (10:25)
== END 2019-08-18 14:30 | disposition home or self-care (01) | DRG 425 ==
LOC: ER 20:19 → MICUSO 23:27
PROVIDERS: ADMIT Internal Medicine; ATTEND Internal Medicine
PROC: 5A1D70Z Performance of Urinary Filtration, Intermittent, Less than 6 Hours Per Day (ICD-10-PCS; principal; 2019-08-16)
DX: E87.5 Hyperkalemia (principal); J96.01 Acute respiratory failure with hypoxia; J68.0 Bronchitis and pneumonitis due to chemicals, gases, fumes and vapors; E11.22 Type 2 diabetes mellitus with diabetic chronic kidney disease; I12.0 Hypertensive chronic kidney disease with stage 5 chronic kidney disease or end stage renal disease; E87.70 Fluid overload, unspecified; I16.0 Hypertensive urgency; E46 Unspecified protein-calorie malnutrition; N18.6 End stage renal disease; E78.5 Hyperlipidemia, unspecified; F14.90 Cocaine use, unspecified, uncomplicated; D63.1 Anemia in chronic kidney disease; Z59.0 Homelessness; Z68.1 Body mass index [BMI] 19.9 or less, adult; Z79.899 Other long term (current) drug therapy; Z82.49 Family history of ischemic heart disease and other diseases of the circulatory system; Z91.14 Patient's other noncompliance with medication regimen; Z91.15 Patient's noncompliance with renal dialysis; Z91.19 Patient's noncompliance with other medical treatment and regimen; Z99.2 Dependence on renal dialysis; Z71.51 Drug abuse counseling and surveillance of drug abuser
CPT/HCPCS: 36415; 71045; 80048; 80053; 83735; 83880; 84100; 84484; 85025; 93005; 96365; 99285; J1650; J2060; J3490; J7050